=== PATIENT | male | born 1980 | race American Indian/Alaskan Native ===

== ENCOUNTER 2020-12-08 00:03 | Emergency (ER) | payer MEDICAID ==
[2020-12-08 02:19] LABS: Bilirubin,Urine NEG (Negative); Blood,Urine NEG (Negative); Color,Urine Yellow (Yellow); Mucus,Urine FEW /HPF; Protein,Urine <15 mg/dL mg/dL (Negative); Urobilinogen,Urine < 2.0 mg/dL (<2.0)
[2020-12-08 02:27] LABS: Amphetamine Screen,Urine PRESUMPTIVE NEGATIVE; Benzodiazepines Screen,Urine PRESUMPTIVE NEGATIVE; Cannabinoid Screen,Urine PRESUMPTIVE POSITIVE; Cocaine Screen,Urine PRESUMPTIVE POSITIVE; Methadone Screen,Urine PRESUMPTIVE NEGATIVE; Opiate Screen,Urine PRESUMPTIVE NEGATIVE
[2020-12-08 02:29] LABS: Basophils % (Auto) 0.5 % (0.0-1.8); Eosinophils # (Auto) 0.1 K/mm3 (0.0-0.4); Eosinophils % (Auto) 1.6 % (0.0-4.3); Hematocrit 45.7 % (35.5-45.6); Hemoglobin 15.3 gm/dl (11.8-15.2); Lymphocytes # (Auto) 3.3 K/mm3 (1.2-5.4); Lymphocytes % (Auto) 35.8 % (13.4-35.0); Mean Corpuscular HGB Conc 33 % (32-34); Mean Corpuscular Volume 93 fl (84-94); Monocytes # (Auto) 0.8 K/mm3 (0.0-0.8); Monocytes % (Auto) 8.6 % (0.0-7.3); Platelet Count 249 K/mm3 (140-440); Red Blood Count 4.92 M/mm3 (3.65-5.03); Red Cell Distribution Width 14.1 % (13.2-15.2)
--- NOTE | 2020-12-08 02:31 | Emergency Department Report ---
ED Psych HPI - General Chief Complaint: Psych Stated Complaint: MENTAL HEALTH;HAVING OUTBURSTS Time Seen by Provider: 12/08/20 02:09 Source: patient Mode of arrival: Ambulatory Limitations: No Limitations - History of Present Illness Initial Comments: Patient is a 40-year-old male that presents emergency room with complaints of visual hallucinations, missed medications, delusions, paranoia. Patient states he is having emotional outburst. Patient states he is having difficulty controlling his emotions. Patient denies suicidal and homicidal ideations. Patient states his symptoms are becoming more frequent and worsening. Patient is here with his caregiver. Patient denies recent travel. Patient denies recent international travel. Patient denies exposure to the novel coronavirus. Patient denies sick contacts. Patient denies fever and chills. Patient denies cough. Patient denies diarrhea. Patient denies coming in contact with anybody with symptoms of the novel coronavirus. MD Complaint: other -: Sudden Associated Psychiatric Symptoms: racing thoughts, visual hallucinations History of same: Yes Quality: constant Improves With: none Worsens With: none Context: significant life stressor, other (Missed medications.) Treatments Prior to Arrival: none - Related Data Home Medications Medication Instructions Recorded Confirmed Last Taken Aspirin 325 mg PO BID 08/17/13 08/23/13 08/23/13 06:50 Benztropine [Cogentin] 2 mg PO BID 08/17/13 08/23/13 08/23/13 06:[address] [Depakote] 500 mg PO BID 08/17/13 08/23/13 08/23/13 06:50 risperiDONE [Risperdal] 2 mg PO BID 08/17/13 08/23/13 08/23/13 06:50 Allergies Allergy/AdvReac Type Severity Reaction Status Date / Time No Known Allergies Allergy Verified 08/23/13 11:45 ED Review of Systems ROS: Stated complaint: MENTAL HEALTH;HAVING OUTBURSTS Other details as noted in HPI Constitutional: denies: chills, fever Eyes: denies: eye pain, eye discharge, vision change ENT: denies: ear pain, throat pain Respiratory: denies: cough, shortness of breath, wheezing Cardiovascular: denies: chest pain, palpitations Endocrine: no symptoms reported Gastrointestinal: denies: abdominal pain, nausea, diarrhea Genitourinary: denies: urgency, dysuria Musculoskeletal: denies: back pain, joint swelling, arthralgia Skin: denies: rash, lesions Neurological: denies: headache, weakness, paresthesias Psychiatric: as per HPI, visual hallucinations. denies: anxiety, depression Hematological/Lymphatic: denies: easy bleeding, easy bruising ED Past Medical Hx - Past Medical History Previous Medical History?: Yes Hx Psychiatric Treatment: Yes Additional medical history: bipolar. schizophrenia - Surgical History Past Surgical History?: No - Family History Family history: no significant - Social History Smoking Status: Current Every Day Smoker Substance Use Type: Cocaine - Medications Home Medications: Home Medications Medication Instructions Recorded Confirmed Last Taken Type Aspirin 325 mg PO BID 08/17/13 08/23/13 08/23/13 06:50 History Benztropine [Cogentin] 2 mg PO BID 08/17/13 08/23/13 08/23/13 06:[address] [Depakote] 500 mg PO BID 08/17/13 08/23/13 08/23/13 06:50 History risperiDONE [Risperdal] 2 mg PO BID 08/17/13 08/23/13 08/23/13 06:50 History ED Physical Exam - General Limitations: No Limitations General appearance: alert, in no apparent distress - Head Head exam: Present: atraumatic, normocephalic - Eye Eye exam: Present: normal appearance - ENT ENT exam: Present: mucous membranes moist - Neck Neck exam: Present: normal inspection - Respiratory Respiratory exam: Present: normal lung sounds bilaterally. Absent: respiratory distress - Cardiovascular Cardiovascular Exam: Present: regular rate, normal rhythm. Absent: systolic murmur, diastolic murmur, rubs, gallop - GI/Abdominal GI/Abdominal exam: Present: soft, normal bowel sounds - Rectal Rectal exam: Present: deferred - Extremities Exam Extremities exam: Present: normal inspection - Back Exam Back exam: Present: normal inspection - Neurological Exam Neurological exam: Present: alert, oriented X3 - Psychiatric Psychiatric exam: Present: flat affect - Expanded Psychiatric Exam Expanded Focused psych exam: Present: pressured speech, internal stimuli, delusional, paranoid - Skin Skin exam: Present: warm, dry, intact, normal color. Absent: rash ED Course Vital Signs 12/08/20 00:29 Temperature 98.4 F Pulse Rate 113 H Respiratory 20 Rate Blood Pressure 138/92 O2 Sat by Pulse 99 Oximetry - Reevaluation(s) Reevaluation #1: Patient placed on a 1013. 12/08/20 02:29 Reevaluation #2: Patient is medically cleared. Patient is on a 1013. Patient remained in the ER as an ER hold and on a 1013. Patient's final disposition will come from our psychiatry team. 12/08/20 03:16 ED Medical Decision Making - Lab Data Result diagrams: 12/08/20 02:04 12/08/20 02:04 - Medical Decision Making Patient is a 40-year-old male who presents emergency room with psychotic symptoms, visual hallucination, delusions and paranoia. Patient also having emotional outbursts. Patient brought in by his caregiver. Patient was placed on a 1013 after initial examination. Patient had labs done which were essentially unremarkable. Patient is medically cleared. Patient placed on a 1013. Patient placed on a ER hold. Patient had medical clearance labs done. Patient's labs were essentially unremarkable. Patient is medically cleared. Patient will remain in the ER as an ER hold until cleared by psychiatry and mental health team. Patient's final disposition will come from the psychiatry mental health team. - Differential Diagnosis Acute psychosis, visual hallucinations, delusions and paranoia. Critical care attestation.: If time is entered above; I have spent that time in minutes in the direct care of this critically ill patient, excluding procedure time. ED Disposition Clinical Impression: Acute psychosis, Hallucinations Is pt being admited?: No Does the pt Need Aspirin: No Condition: Stable Referrals: PRIMARY CARE, [Primary Care Provider] - 2-3 Days Time of Disposition: 03:19
[2020-12-08 02:35] LABS: BUN/Creatinine Ratio 10; Blood Urea Nitrogen 10 mg/dL (9-20); Calcium 9.9 mg/dL (8.4-10.2); Hemolysis Index 9
[2020-12-08] MEDS ORDERED: IBUPROFEN 600 MG TAB PO ONE (06:08)
--- NOTE | 2020-12-08 10:18 | Consultation ---
History of Present Illness - Reason for Consult Consult date: 12/08/20 Reason for consult: SI - History of Present Psychiatric Illness Per ER Note: "Patient is a 40-year-old male that presents emergency room with complaints of visual hallucinations, missed medications, delusions, paranoia. Patient states he is having emotional outburst. Patient states he is having difficulty controlling his emotions. Patient denies suicidal and homicidal ideations. Patient states his symptoms are becoming more frequent and worsening. Patient is here with his caregiver." During my interview with 40y/o Lloyd Stewart, he is lying down in bed. He is patricia ke and a/o x 3. He is responding to internal stimuli. The patient says he was brought to the ER for emotional outbursts. He says he has a bunch of thoughts going through his head of "voices and trying to get a cigaret." He says he "hears voices of friends tying to have a good time." The patient verbalizes suicidal thoughts but denies having a plan. He says he has a history of Bipolar schizophrenia. When asking about illicit drug use, the patient replies "all of that." He says he uses "meth, crack cocaine, and weed." The patient says he takes his medications everyday but states "they are not working." Psychiatric History Diagnoses: Bipolar schizophrenia Suicidal attempts: yes Psych admissions: yes Medications tried: risperidone, depakote, cogenin haldol Substance abuse: Meth, crack, THC Outpatient care: Yes Medical history: None reported Family psych history: None reported Social History Marital status: Single Living arrangements: "rooming house" Highest education: high school Legal history: Denies Employment status: Disabled REVIEW OF SYSTEMS Constitutional: Negative for weight loss ENT: Negative for stridor Respiratory: Negative for cough or hemoptysis All other systems reviewed and are negative MENTAL STATUS EXAMINATION General Appearance and Behavior: Age appropriate, good hygiene, wearing appropriate clothes, cooperative Cooperation: cooperative Psychomotor Behavior: Psychomotor normal Mood: Depressed Affect and affective range: restricted Thought Process: illogical, racing Thought Content: SI, hallucinations Speech: Normal rate, volume and rhythm Suicidal Ideation: Yes Homicidal Ideation: Denies Hallucinations: Auditory Delusions: None elicited Impulse Control: Impaired Insight and Judgment: Impaired insight and judgment Memory: Limited Attention: Normal Orientation: Alert, oriented. Assessment and Plan (1) Schizophrenia (2) Cocaine Use Disorder (3) Methamphetamine Use Disorder Treatment Plan Start home Depakote DR 500mg po BID Start Zoloft 25mg po daily [facility] home risperidone 2mg po BID Start Home Cogentin 2mg po BID Start Trazodone 50mg po qhs Start Vistaril 25mg po BID Sitter: defer to primary Medical: per primary Disposition: Recommend acute inpatient treatment Will follow. Case staffed with Dr. Ruiz. Medications and Allergies Allergies Allergy/AdvReac Type Severity Reaction Status Date / Time No Known Allergies Allergy Verified 08/23/13 11:45 Home Medications Medication Instructions Recorded Confirmed Last Taken Type Aspirin 325 mg PO BID 08/17/13 08/23/13 08/23/13 06:50 History Benztropine [Cogentin] 2 mg PO BID 08/17/13 08/23/13 08/23/13 06:[address] [Depakote] 500 mg PO BID 08/17/13 08/23/13 08/23/13 06:50 History risperiDONE [Risperdal] 2 mg PO BID 08/17/13 08/23/13 08/23/13 06:50 History Mental Status Exam - Vital signs Last Vital Signs Temp 98.6 F 12/08/20 08:58 Pulse 66 12/08/20 08:58 Resp 18 12/08/20 08:58 BP 132/84 12/08/20 08:58 Pulse Ox 98 12/08/20 08:58 Results Result Diagrams: 12/08/20 02:04 12/08/20 02:04 Abnormal lab results 12/08/20 12/08/20 12/08/20 Range/Units 02:04 02:04 02:04 Hgb (11.8-15.2) gm/dl Hct (35.5-45.6) % Lymph % (Auto) (13.4-35.0) % [place] % (Auto) (0.0-7.3) % Glucose 103 H (75-100) mg/dL Salicylates < 0.3 L (2.8-20.0) mg/dL Acetaminophen 5.0 L (10.0-30.0) ug/mL 12/08/20 Range/Units 02:04 Hgb 15.3 H (11.8-15.2) gm/dl Hct 45.7 H (35.5-45.6) % Lymph % (Auto) 35.8 H (13.4-35.0) % [place] % (Auto) 8.6 H (0.0-7.3) % Glucose (75-100) mg/dL Salicylates (2.8-20.0) mg/dL Acetaminophen (10.0-30.0) ug/mL All other labs normal.
[2020-12-08] MEDS ORDERED: NON-FORMULARY EACH (Risperidone [Risperdal] 2 MG Tablet) PO SCH (10:30)
[2020-12-08] MEDS: BENZTROPINE 2 MG TAB PO SCH ×2 (11:11→22:04)
[2020-12-08] MEDS: SERTRALINE 25 MG TAB PO SCH (11:12)
[2020-12-08] MEDS: hydrOXYzine PAMOATE 25 MG CAP PO SCH ×2 (11:12→22:04)
[2020-12-08] MEDS: risperiDONE 1 MG TAB PO SCH ×2 (11:12→22:04)
[2020-12-08] MEDS: DIVALPROEX DR 500 MG TAB PO SCH ×2 (11:12→22:04)
[2020-12-08] MEDS ORDERED: traZODone 50 MG TAB PO SCH (22:00)
[2020-12-09 08:23] VITALS: BP 132/84
--- NOTE | 2020-12-09 10:16 | Progress Note ---
Subjective - Reason for Consult Consult date: 12/09/20 Reason for consult: psychosis - Chief Complaint Chief complaint: Per ER Note: Nurse caring for the patient states he had periods where he was fidgety. She says but he has denies SI/HI, A/V/H. She also says the patient refused his meds stated that he doesn't like it or needs it because he feels better and is going home. The patient was seen today. He is lying in bed. She patient is watching T.V. He says he is better and is asking if he can go back to his [facility]. When asking the patient why didn't he take his meds. He says "because I don't really need them now. I feel clear." The patient denies hallucinations of any kind, stating, "yesterday, but not now." The patient also denies SI/HI. He says "I slept good," when asked how was his night. The patient says "I feel good enough to go back to my [facility]." REVIEW OF SYSTEMS Constitutional: Negative for weight loss ENT: Negative for stridor Respiratory: Negative for cough or hemoptysis All other systems reviewed and are negative MENTAL STATUS EXAMINATION General Appearance and Behavior: Age appropriate, good hygiene, wearing appropriate clothes, calm, cooperative Cooperation: cooperative Psychomotor Behavior: Psychomotor normal Mood: better Affect and affective range: restricted Thought Process: goal directed Thought Content: Denies Speech: Normal rate, volume and rhythm Suicidal Ideation: Denies Homicidal Ideation: Denies Hallucinations: Denies Delusions: None elicited Impulse Control: Limited Insight and Judgment: Impaired insight and judgment Memory: Limited Attention: Normal Orientation: Alert, oriented. Assessment and Plan (1) Schizophrenia (2) Cocaine Use Disorder (3) Methamphetamine Use Disorder Treatment Plan d/c 1013 Continue home meds previously prescribed Zoloft 25mg po daily Trazodone 50mg po qhs Vistaril 25mg po BID Sitter: defer to primary Medical: per primary Disposition: Do not Recommend acute inpatient treatment. The patient understands that if SI/HI or feelings of fear or endangerment arise he is to seek immediate assistance including but not limited to the crisis hotline, 911/ ER. The cost reduction engineer to discuss safety plan The patient to abstain from all illicit drug use The patient to follow up with outpatient in 7 to 14 days upon discharge Will sign off. Case staffed with Dr. Ruiz. Mental Status Exam - Vital signs Last Vital Signs Temp 98.7 F 12/09/20 01:40 Pulse 66 12/09/20 07:45 Resp 16 12/09/20 08:23 BP 132/84 12/09/20 07:45 Pulse Ox 98 12/09/20 08:23
[2020-12-09] MEDS: DIVALPROEX DR 500 MG TAB PO SCH (10:43)
[2020-12-09] MEDS: SERTRALINE 25 MG TAB PO SCH (10:43)
[2020-12-09] MEDS: risperiDONE 1 MG TAB PO SCH (10:43)
[2020-12-09] MEDS: BENZTROPINE 2 MG TAB PO SCH (10:43)
[2020-12-09] MEDS: hydrOXYzine PAMOATE 25 MG CAP PO SCH (10:43)
== END 2020-12-09 14:08 ==
LOC: ED 00:03
DX: F23 Brief psychotic disorder (principal); Z20.822 Contact with and (suspected) exposure to COVID-19; F31.9 Bipolar disorder, unspecified; F17.200 Nicotine dependence, unspecified, uncomplicated; Z79.899 Other long term (current) drug therapy
CPT/HCPCS: 36415; 80048; 80307; 81001; 85025; 99285; Q0177; U0003; 80320; G0480